=== PATIENT | female | born 1970 | race Caucasian/White ===

== ENCOUNTER 2016-10-22 08:04 | Emergency (ER) | payer BC ==
[2016-10-22 08:14] VITALS: BP 101/68
--- NOTE | 2016-10-22 08:23 | UC ---
Respiratory Complaint HPI - HPI Summary HPI Summary: 2 WEEKS OF WORSENING COUGH, CHEST CONGESTION AND SINUS PRESSURE. NO FEVER, N/V/ D. NO ST OR EAR PAIN. - History of Current Complaint Chief Complaint: UCRespiratory Stated Complaint: COUGH Time Seen by Provider: 10/22/16 08:17 Hx Obtained From: Patient Hx Last Menstrual Period: 10/09/16 Onset/Duration: Gradual Onset, Lasting Weeks, Still Present Timing: Constant Severity Initially: Moderate Severity Currently: Moderate Pain Intensity: 0 Pain Scale Used: 0-10 Numeric Character: Cough: Nonproductive Aggravating Factors: Nothing Alleviating Factors: Nothing Associated Signs And Symptoms: Positive: URI, Nasal Congestion, Sinus Discomfort. Negative: Dyspnea, Fever, Chills, Pleuritic Chest Pain, Wheezing, Hemoptysis, Dizziness, Calf Pain, Calf Swelling, Edema - Allergies/Home Medications Allergies/Adverse Reactions: Allergies Allergy/AdvReac Type Severity Reaction Status Date / Time No Known Allergies Allergy Verified 04/02/15 12:27 Home Medications: Home Medications Lisinopril TAB* [Prinivil TAB 10 MG*] 10 mg PO DAILY 10/22/16 [History Confirmed 10/22/16] PMH/Surg Hx/FS Hx/Imm Hx Endocrine History Of: Denies: Diabetes, Thyroid Disease, Hyperthyroidism, Hypothyroidism Cardiovascular History Of: Reports: Hypertension Denies: Cardiac Disorders, Pacemaker/ICD Respiratory History Of: Denies: COPD, Asthma, Pneumonia GI/ History Of: Denies: Gastroesophageal Reflux, Ulcer, Gall Bladder Disease, Renal Disease Neurological History Of: Reports: Migraine - started approx 1 year ago about 1/ mo Denies: TIA, CVA, Dementia, Seizures Psychological History Of: Denies: Anxiety, Depression Cancer History Of: Denies: Lung Cancer Other History Of: Negative For: Anticoagulant Therapy - Surgical History Surgical History: Yes Surgery Procedure, Year, and Place: c sections 1993 & 1994/CHOLECYSTECTOMY/ TUBAL LIGATION - Family History Known Family History: Positive: Hypertension - Social History Alcohol Use: None Substance Use Type: None Smoking Status (MU): Never Smoked Tobacco Household Exposure Type: Cigarettes - Immunization History Most Recent Tetanus Shot: 2010 Review of Systems Constitutional: Negative ENT: Nasal Discharge Respiratory: Cough Cardiovascular: Negative Gastrointestinal: Negative Neurological: Headache All Other Systems Reviewed And Are Negative: Yes Physical Exam Triage Information Reviewed: Yes Appearance: Well-Appearing, No Pain Distress, Well-Nourished Vital Signs: Initial Vital Signs Temp 98.5 F 10/22/16 08:10 Pulse 66 10/22/16 08:10 Resp 18 10/22/16 08:10 BP 101/68 10/22/16 08:10 Pulse Ox 97 10/22/16 08:10 Vital Signs Reviewed: Yes Eyes: Positive: Conjunctiva Clear ENT: Positive: Hearing grossly normal, Pharynx normal, TMs normal Neck: Positive: Supple, Nontender, No Lymphadenopathy Respiratory Exam: Normal Cardiovascular Exam: Normal Abdomen Description: Positive: Soft Musculoskeletal: Positive: No Edema Neurological: Positive: Alert Psychological: Positive: Age Appropriate Behavior Skin: Negative: rashes UC Diagnostic Evaluation - Laboratory O2 Sat by Pulse Oximetry: 97 Respiratory Course/Dx - Differential Dx/Diagnosis Provider Diagnoses: ACUTE BRONCHITIS Discharge - Discharge Plan Condition: Stable Disposition: HOME Prescriptions: Azithromycin [Azithromycin 500 MG TAB] 500 mg PO DAILY #5 tab Patient Education Materials: Acute Bronchitis (ED) Referrals: Jewell Sal MD [Primary Care Provider] - If Needed
== END 2016-10-22 08:42 | disposition home or self-care (01) ==
LOC: UCEAST 08:04
DX: J20.9 Acute bronchitis, unspecified (principal); I10 Essential (primary) hypertension; Z77.22 Contact with and (suspected) exposure to environmental tobacco smoke (acute) (chronic)
CPT/HCPCS: 99212; G0463

== ENCOUNTER 2019-08-24 11:18 | Emergency (ER) | payer OTHER ==
[2019-08-24 11:21] VITALS: BP 140/83
--- NOTE | 2019-08-24 11:51 | ED ---
Throat Pain/Nasal Congestion - HPI Summary HPI Summary: Patient is a 49-year-old female who presents emergency department for sinus congestion and pressure 2 weeks. Patient also notes productive cough. Denies past medical history. Pt. states she had a fever a few days ago. Denies associated symptoms of abdominal pain, vomiting, diarrhea, urinary symptoms. Symptoms are mild in severity. modifying factors. - History of Current Complaint Chief Complaint: EDGeneral Time Seen by Provider: 08/24/19 11:46 Hx Obtained From: Patient - Allergies/Home Medications Allergies/Adverse Reactions: Allergies Allergy/AdvReac Type Severity Reaction Status Date / Time No Known Allergies Allergy Verified 04/02/15 12:27 Home Medications: Home Medications Amitriptyline TAB* [Elavil TAB*] 10 mg PO BEDTIME 08/24/19 [History Confirmed ] Bisoprolol/Hydrochlorothiazide [Ziac 5-6.25 mg-] 1 tab PO DAILY 08/24/19 [ History Confirmed 08/24/19] Cyclobenzaprine TAB* [Flexeril 10 MG TAB*] 10 mg PO BEDTIME PRN 08/24/19 [ History Confirmed 08/24/19] Diclofenac Sodium EC TAB* [Voltaren EC TAB*] 75 mg PO BID 08/24/19 [History Confirmed 08/24/19] Hyoscyamine ER (NF) [Levbid (NF)] 0.375 mg PO Q12H 08/24/19 [History Confirmed 08/24/19] PMH/Surg Hx/FS Hx/Imm Hx Previously Healthy: Yes Endocrine/Hematology History: Denies: Hx Anticoagulant Therapy, Hx Blood Disorders, Hx Blood Transfusions, Hx Diabetes, Hx Systemic Lupus Erythematosus, Hx Thyroid Disease, Hx Anemia, Hx Unexplained Bleeding Cardiovascular History: Reports: Hx Hypertension Denies: Hx Aneurysm, Hx Angina, Hx Angioplasty, Hx Auto Implanted Cardiovert Defib, Hx Cardiac Arrest, Hx Hypercholesterolemia, Hx Hypotension, Hx Pacemaker/ ICD, Hx Peripheral Vascular Disease, Hx Rheumatic Fever, Hx Syncope Respiratory History: Reports: Hx Seasonal Allergies Denies: Hx Asthma, Hx Chronic Bronchitis, Hx Chronic Obstructive Pulmonary Disease (COPD), Hx Cystic Fibrosis, Hx Lung Cancer, Hx Pneumonia, Hx Sleep Apnea GI History: Denies: Hx Cirrhosis, Hx Crohn's Disease, Hx Diverticulosis, Hx Gall Bladder Disease, Hx Gastroesophageal Reflux Disease, Hx Irritable Bowel, Hx Ulcer History: Reports: Hx Kidney Infection - 10 years ago Denies: Hx Renal Disease Musculoskeletal History: Denies: Hx Arthritis, Hx Osteoporosis Sensory History: Denies: Hx Cataracts, Hx Contacts or Glasses, Hx Glaucoma, Hx Deafness, Hx Hearing Aid Opthamlomology History: Denies: Hx Cataracts, Hx Contacts or Glasses, Hx Glaucoma Neurological History: Reports: Hx Migraine - started approx 1 year ago about 1/ mo Denies: Hx Dementia, Hx Headaches, Hx Seizures, Hx Transient Ischemic Attacks (TIA) Psychiatric History: Reports: Hx of Violent Episodes Against Others Denies: Hx Anxiety, Hx Attention Deficit Hyperactivity Disorder, Hx Eating Disorder, Hx Depression, Hx Suicide Attempt, Hx Substance Abuse - Surgical History Surgery Procedure, Year, and Place: c sections 1993 & 1994/CHOLECYSTECTOMY/ TUBAL LIGATION Hx Anesthesia Reactions: No - Immunization History Date of Tetanus Vaccine: UNKNOWN Infectious Disease History: No Infectious Disease History: Denies: Hx Clostridium Difficile, Hx Hepatitis, Hx Human Immunodeficiency Virus (HIV), Hx of Known/Suspected MRSA, Hx Shingles, Hx Tuberculosis, Traveled Outside the in Last 30 Days - Family History Known Family History: Positive: Unknown, Hypertension, Non-Contributory - Social History Occupation: Unemployed Lives: With Family Alcohol Use: None Substance Use Type: Reports: None Smoking Status (MU): Never Smoked Tobacco Review of Systems Positive: Fever Positive: Drainage ENT: Other - sinus pain and pressure Cardiovascular: Negative Negative: Palpitations, Chest Pain Positive: Cough. Negative: Shortness Of Breath Gastrointestinal: Negative Negative: Abdominal Pain, Vomiting, Diarrhea Genitourinary: Negative Negative: dysuria Skin: Negative Neurological: Negative All Other Systems Reviewed And Are Negative: Yes Physical Exam Triage Information Reviewed: Yes Vital Signs On Initial Exam: Initial Vitals Temp Pulse Resp BP Pulse Ox 97.8 F 77 19 140/83 98 08/24/19 11:18 08/24/19 11:18 08/24/19 11:18 08/24/19 11:18 08/24/19 11:18 Vital Signs Reviewed: Yes Appearance: Positive: Well-Appearing - Pt. sitting on side of bed in NAD. Appears to feel unwell but nontoxic. Skin: Positive: Warm, Dry Head/Face: Positive: Normal Head/Face Inspection Eyes: Positive: Normal, EOMI, NAHED, Conjunctiva Clear, Other: - Clear drainage bilaterally. ENT: Positive: Pharynx normal, Other - Nasal congestion noted. Pain to maxillary and frontal sinuses. Fluid behind right TM.. Negative: Pharyngeal erythema, Tonsillar swelling, Tonsillar exudate Neck: Positive: Supple, Nontender. Negative: Nuchal Rigidity Respiratory/Lung Sounds: Positive: Clear to Auscultation, Breath Sounds Present. Negative: Rales, Rhonchi, Wheezes Cardiovascular: Positive: Normal, RRR Neurological: Positive: Normal, CN Intact II-III Psychiatric: Positive: Affect/Mood Appropriate Procedures - Sedation Patient Received Moderate/Deep Sedation with Procedure: No Diagnostics - Vital Signs Vital Signs Temp Pulse Resp BP Pulse Ox 08/24/19 11:18 97.8 F 77 19 140/83 98 - Laboratory Lab Statement: Any lab studies that have been ordered have been reviewed, and results considered in the medical decision making process. EENT Course/Dx - Course Course Of Treatment: Patient presenting with productive cough and sinus pain 2 weeks. Afebrile with stable vital signs. Given the duration of symptoms will treat with doxycycline and Flonase. Advised anti-inflammatories directed for discomfort. Follow-up with PCP and return to the ER if symptoms change or worsen. Patient understands and agrees with plan. - Differential Diagnoses Differential Diagnoses: Influenza, Sinusitis, URI/Bronchitis - Diagnoses Provider Diagnoses: Sinusitis, Cough Discharge ED - Sign-Out/Discharge Documenting (check all that apply): Patient Departure - Discharge Plan Condition: Good Disposition: HOME Prescriptions: DOXYcycline CAP(*) [DOXYcycline 100MG CAP(*)] 100 mg PO BID #20 cap Fluticasone NASAL SPRAY 50MCG* [Flonase NASAL SPRAY 50MCG*] 2 spray BOTH NARES DAILY #1 btl Patient Education Materials: Sinusitis (ED) Referrals: Jewell Sal MD [Primary Care Provider] - Additional Instructions: Follow up with PCP within one week if symptoms persist Medication as directed Ibuprofen for pain as directed Increase fluids and rest Return to ER if symptoms change or worsen - Billing Disposition and Condition Condition: GOOD Disposition: Home
--- NOTE | 2019-08-24 12:47 | ED ---
Upper Extremity Pain - HPI Summary HPI Summary: 49 year old female presents to the ED with a chief complaint of left wrist pain starting last night while doing the dishes, worse this morning when she woke up. Patient reports bruising on her wrist accompanied by pain that felt like "being stabbed by a pen", shortness of breath (for the last week), wheezing, difficulty swallowing, and nasal congestion. Patient denies swelling in extremities. PMHx asthma, HTN. No Hx DVT. - History of Current Complaint Chief Complaint: EDGeneral Stated Complaint: POSS SINUS INFECTION PER PT Time Seen by Provider: 08/24/19 11:46 Hx Obtained From: Patient Hx Last Menstrual Period: 10/09/16 - Allergies/Home Medications Allergies/Adverse Reactions: Allergies Allergy/AdvReac Type Severity Reaction Status Date / Time No Known Allergies Allergy Verified 04/02/15 12:27 Home Medications: Home Medications Amitriptyline TAB* [Elavil TAB*] 10 mg PO BEDTIME 08/24/19 [History Confirmed ] Bisoprolol/Hydrochlorothiazide [Ziac 5-6.25 mg-] 1 tab PO DAILY 08/24/19 [ History Confirmed 08/24/19] Cyclobenzaprine TAB* [Flexeril 10 MG TAB*] 10 mg PO BEDTIME PRN 08/24/19 [ History Confirmed 08/24/19] Diclofenac Sodium EC TAB* [Voltaren EC TAB*] 75 mg PO BID 08/24/19 [History Confirmed 08/24/19] Hyoscyamine ER (NF) [Levbid (NF)] 0.375 mg PO Q12H 08/24/19 [History Confirmed 08/24/19] PMH/Surg Hx/FS Hx/Imm Hx Endocrine/Hematology History: Denies: Hx Anticoagulant Therapy, Hx Blood Disorders, Hx Blood Transfusions, Hx Diabetes, Hx Systemic Lupus Erythematosus, Hx Thyroid Disease, Hx Anemia, Hx Unexplained Bleeding Cardiovascular History: Reports: Hx Hypertension Denies: Hx Aneurysm, Hx Angina, Hx Angioplasty, Hx Auto Implanted Cardiovert Defib, Hx Cardiac Arrest, Hx Hypercholesterolemia, Hx Hypotension, Hx Pacemaker/ ICD, Hx Peripheral Vascular Disease, Hx Rheumatic Fever, Hx Syncope Respiratory History: Reports: Hx Seasonal Allergies Denies: Hx Asthma, Hx Chronic Bronchitis, Hx Chronic Obstructive Pulmonary Disease (COPD), Hx Cystic Fibrosis, Hx Lung Cancer, Hx Pneumonia, Hx Sleep Apnea GI History: Denies: Hx Cirrhosis, Hx Crohn's Disease, Hx Diverticulosis, Hx Gall Bladder Disease, Hx Gastroesophageal Reflux Disease, Hx Irritable Bowel, Hx Ulcer History: Reports: Hx Kidney Infection - 10 years ago Denies: Hx Renal Disease Musculoskeletal History: Denies: Hx Arthritis, Hx Osteoporosis Sensory History: Denies: Hx Cataracts, Hx Contacts or Glasses, Hx Glaucoma, Hx Deafness, Hx Hearing Aid Opthamlomology History: Denies: Hx Cataracts, Hx Contacts or Glasses, Hx Glaucoma Neurological History: Reports: Hx Migraine - started approx 1 year ago about 1/ mo Denies: Hx Dementia, Hx Headaches, Hx Seizures, Hx Transient Ischemic Attacks (TIA) Psychiatric History: Reports: Hx of Violent Episodes Against Others Denies: Hx Anxiety, Hx Attention Deficit Hyperactivity Disorder, Hx Eating Disorder, Hx Depression, Hx Suicide Attempt, Hx Substance Abuse - Surgical History Surgery Procedure, Year, and Place: c sections 1993 & 1994/CHOLECYSTECTOMY/ TUBAL LIGATION Hx Anesthesia Reactions: No - Immunization History Date of Tetanus Vaccine: UNKNOWN Infectious Disease History: No Infectious Disease History: Denies: Hx Clostridium Difficile, Hx Hepatitis, Hx Human Immunodeficiency Virus (HIV), Hx of Known/Suspected MRSA, Hx Shingles, Hx Tuberculosis, Traveled Outside the [place] in Last 30 Days - Family History Known Family History: Positive: Unknown, Hypertension, Non-Contributory - Social History Occupation: Unemployed Lives: With Family Alcohol Use: None Substance Use Type: Reports: None Smoking Status (MU): Never Smoked Tobacco Physical Exam Vital Signs On Initial Exam: Initial Vitals Temp Pulse Resp BP Pulse Ox 97.8 F 77 19 140/83 98 08/24/19 11:18 08/24/19 11:18 08/24/19 11:18 08/24/19 11:18 08/24/19 11:18 Diagnostics - Vital Signs Vital Signs Temp Pulse Resp BP Pulse Ox 08/24/19 12:12 97.8 F 79 19 140/83 98 08/24/19 11:18 97.8 F 77 19 140/83 98 - Laboratory Lab Statement: Any lab studies that have been ordered have been reviewed, and results considered in the medical decision making process. Course/Dx - Diagnoses Provider Diagnoses: Sinusitis, Cough Discharge ED - Discharge Plan Condition: Good Disposition: HOME Prescriptions: DOXYcycline CAP(*) [DOXYcycline 100MG CAP(*)] 100 mg PO BID #20 cap Fluticasone NASAL SPRAY 50MCG* [Flonase NASAL SPRAY 50MCG*] 2 spray BOTH NARES DAILY #1 btl Patient Education Materials: Sinusitis (ED) Referrals: Jewell Sal MD [Primary Care Provider] - Additional Instructions: Follow up with PCP within one week if symptoms persist Medication as directed Ibuprofen for pain as directed Increase fluids and rest Return to ER if symptoms change or worsen - Attestation Statements Document Initiated by Scribe: Yes
== END 2019-08-24 12:12 | disposition home or self-care (01) ==
LOC: ED 11:18
DX: J32.9 Chronic sinusitis, unspecified (principal); R05 Cough; I10 Essential (primary) hypertension; Z79.899 Other long term (current) drug therapy; Z90.49 Acquired absence of other specified parts of digestive tract; Z98.51 Tubal ligation status
CPT/HCPCS: 99282